=== PATIENT | female | born 1970 | race Caucasian/White ===

== ENCOUNTER 2019-03-24 10:06 | Outpatient (CLI) | payer MEDICAID, SELFPAY ==
[2019-03-24 10:58] LABS: Abs Immature Grans 0.01 k/cumm (0.0-0.09); Absolute Basophil Count 0.08 k/cumm (0.0-0.2); Absolute Eosinophil Count 0.21 k/cumm (0.0-0.7); Absolute Lymphocyte Count 2.03 k/cumm (1.2-3.4); Absolute Neutrophil Count 3.07 k/cumm (1.2-6.7); Basophils % 1.4; Eosinophils % 3.6; HGB 13.9 g/dL (12.0-15.5); Immature Grans % 0.2; Mean Corp. HGB Concentration 32.3 g/dL (32.0-36.0); Mean Corpuscular Hemoglobin 29.9 pg (27.0-33.0); Mean Corpuscular Volume 92.5 fL (80-95); Mean Platelet Volume 12.1 fL (8.0-11.0); Monocytes % 6.9; Neutrophils % 52.9; Platelet Count 178 x1000/uL (130-400); RBC 4.65 m/cumm (4.00-5.20); RBC Distribution Width 13.6 % (11.7-14.6)
[2019-03-24 11:46] LABS: ALT 35 U/L (14-59); AST 30 U/L (15-37); Albumin 4.1 g/dL (3.4-5.0); Alkaline Phosphatase 92 U/L (46-116); Anion Gap 10.2 mmol/L (3-11); BUN 11 mg/dL (7-18); Bilirubin, Total 0.4 mg/dL (0.2-1.0); CO2 27.8 mmol/L (21.0-32.0); CREATININE 0.73 mg/dL (0.55-1.02); Calcium 9.4 mg/dL (8.5-10.1); Chloride 106 mmol/L (98-107); Ferritin 57 ng/mL (8-388); Glucose 98 mg/dL (70-100); Potassium 4.2 mmol/L (3.5-5.1); Sodium 144 mmol/L (136-145); TSH 2.53 uIU/mL (0.36-3.74); Total Protein 7.5 g/dL (6.4-8.2)
[2019-03-24 17:21] LABS: T3,Free 3.7 pg/ml (2.8-5.3)
[2019-03-25 11:10] LABS: Lyme Ab w Rflx to Lyme Confirm Negative
[2019-03-26 22:03] LABS: Anaplasma phagocytophilum Negative (Negative); B. miyamotoi PCR Negative (Negative); Babesia divergens/MO-1 Negative (Negative); Babesia duncani Negative (Negative); Babesia microti Negative (Negative); Ehrlichia chaffeensis Negative (Negative); Ehrlichia ewingii/canis Negative (Negative); Ehrlichia muris eauclairensis Negative (Negative)
== END 2019-03-24 10:26 ==
PROVIDERS: PCP Naturopath; Visit Provider Naturopath
DX: R53.83 Other fatigue (principal); H92.09 Otalgia, unspecified ear; M62.40 Contracture of muscle, unspecified site; R41.0 Disorientation, unspecified; R06.00 Dyspnea, unspecified; M25.539 Pain in unspecified wrist; R11.0 Nausea; R19.7 Diarrhea, unspecified; D50.9 Iron deficiency anemia, unspecified; J30.9 Allergic rhinitis, unspecified
CPT/HCPCS: 36415; 80053; 87798; 82728; 84439; 84443; 84481; 85025; 86618

== ENCOUNTER 2020-02-01 12:30 | Outpatient (REF) | payer MEDICAID, SELFPAY ==
--- NOTE | 2020-01-31 12:30 | PAPFT_PTH ---
PATIENT: Danielle Corey LOC: [facility] U#:[id number] AGE/SX: 49/F ROOM: RE02/01/[address]: Seferino Marin : 1970 BED: DIS: 02/01/2020 SPEC #: [id number] RECD: 02/01/20 12:57 STATUS: NOE REEstela #: [id number] NEW: 01/31/20 12:[address]: Seferino Marin DEPT: [facility] [place] Cytology RECD BY: Teagan Painting Tissues: 1 - CX/ENDOCX FOR PAP SMEARS Procedures: PAP THIN PREP/[facility] Screening HPV DNA PROBE Comments: [id number]
== END 2020-02-01 12:50 ==
LOC: LBN 12:30
PROVIDERS: PCP Naturopath; Visit Provider Naturopath
DX: Z11.51 Encounter for screening for human papillomavirus (HPV) (principal)
CPT/HCPCS: 88142; 87624

== ENCOUNTER 2021-04-03 08:13 | Outpatient (REF) | payer MEDICAID, SELFPAY | END 2021-04-03 08:14 | disposition home or self-care (01) | LOC: LBN 08:13 | PROVIDERS: PCP Naturopath; Visit Provider Naturopath | DX: J02.9 Acute pharyngitis, unspecified (principal); R59.9 Enlarged lymph nodes, unspecified | CPT/HCPCS: 87081 ==

== ENCOUNTER 2024-01-28 20:25 | Outpatient (REF) | payer MEDICAID, SELFPAY ==
[2024-01-28 23:15] LABS: C Diff PCR Negative (Negative)
[2024-01-29 23:17] LABS: Campylobacter PCR Negative (Negative); Salmonella PCR Negative (Negative); Shiga Toxin PCR Negative (Negative); Shigella/Enteroinvasive Ecoli Negative (Negative)
[2024-02-02 13:06] LABS: Helicobacter pylori Ag, Feces Negative (Negative)
== END 2024-01-28 20:26 | disposition home or self-care (01) ==
LOC: LBN 20:25
PROVIDERS: PCP Naturopath; Visit Provider Naturopath
DX: R10.32 Left lower quadrant pain (principal); R14.0 Abdominal distension (gaseous); B82.9 Intestinal parasitism, unspecified; A09 Infectious gastroenteritis and colitis, unspecified
CPT/HCPCS: 87329; 87338; 87493; 87505; 87177

== ENCOUNTER 2025-01-10 20:31 | Outpatient (REF) | payer MEDICAID, SELFPAY | END 2025-01-10 20:32 | disposition home or self-care (01) | LOC: LBN 20:31 | PROVIDERS: PCP Naturopath; Visit Provider Naturopath | DX: J02.9 Acute pharyngitis, unspecified (principal) | CPT/HCPCS: 87081 ==

== ENCOUNTER 2025-01-23 21:24 | Outpatient (REF) | payer MEDICAID, SELFPAY | END 2025-01-23 21:25 | disposition home or self-care (01) | LOC: LBN 21:24 | PROVIDERS: PCP Naturopath; Visit Provider Naturopath | DX: R05.3 Chronic cough (principal) | CPT/HCPCS: 87070; 87205 ==